=== PATIENT | female | born 1965 | race African-American/Black ===

== ENCOUNTER 2016-11-07 07:13 | Emergency (ER) | payer OTHER ==
[~2016-11-07] VITALS: Ht 157.5 cm; Wt 59.0 kg
--- NOTE | ~2016-11-07 | EKG ---
[address] [place] [address] ELECTROCARDIOGRAM REPORT Name: LEONARDO CLINTON [facility] [id number] Admission: Attend Phys: Discharge: Date of : 65 Report #: [id number] THIS REPORT FOR: //name// [facility] ED Test Date: 2016-11-07 Test Time: 07:22:30 Pat Name: LEONARDO CLINTON Department: Room: Gender: F [employer]: : 1965 Requested By: Kizzy Turner Order Number: [id number] MD: Jose Chua Measurements Intervals [place] Rate: 73 P: 67 RI: 189 QRS: 55 QRSD: 91 T: 23 QT: 400 QTc: 441 Interpretive Statements Sinus rhythm No significant abnormality No previous ECG available for comparison Electronically Signed On 11-07-2016 8:05:49 EKG MONITOR TECH by Jose Chua [email or web address] <ELECTRONICALLY SIGNED> By: Jose Chua MD, [facility] 11/07/16 0805 0722 0722 Jose Chua MD, FACC /EPI
[2016-11-07] MEDS ORDERED: NORVASC5 MG PO (07:35)
[2016-11-07] MEDS ORDERED: LISINOPRIL10 MG PO (07:35)
[2016-11-07] MEDS ORDERED: HYDROCHLOROTH12.5 M1 PO (07:35)
[2016-11-07] MEDS ORDERED: AUGMENTIN 875875 MG PO (07:36)
[2016-11-07 07:49] LABS: CALCIUM 8.8 mg/dL (8.5-10.1); CREATININE 1.2 mg/dL (0.6-1.3); POTASSIUM 3.4 mmol/L (3.5-5.1)
[2016-11-07 07:54] LABS: ABSOLUTE NEUTROPHILS 4.5 thou/uL (1.4-8.2); BASOPHILS 0.7 % (0.0-2.0); EOSINOPHILS 0.1 % (0.0-3.0); LYMPHOCYTES 11.9 % (24.0-44.0); MCH 21.5 pg (26.0-34.0); MCHC 31.5 % (28.0-37.0); MCV 68.3 fL (80.0-100.0); MONOCYTES 8.6 % (1.0-8.0); PLATELET COUNT 228 thou/uL (150-400); POLYS 78.7 % (36.0-66.0); RBC 5.56 mil/uL (4.20-5.00); RDW 14.9 % (10.5-14.5); WBC 5.8 thou/uL (4.0-11.0)
[2016-11-07 07:57] LABS: MANUAL DIFF NO
[2016-11-07 08:40] LABS: ANISOCYTOSIS 1+; HYPOCHROMASIA 1+; MICROCYTES 2+; PLATELET ESTIMATE NORMAL
[2016-11-07 08:58] LABS: URINE BILIRUBIN NEGATIVE (Negative); URINE BLOOD NEGATIVE (Negative); URINE COLOR YELLOW; URINE GLUCOSE-RANDOM* NEGATIVE (Negative); URINE KETONES TRACE (Negative); URINE LEUKOCYTES-REFLEX NEGATIVE (Negative); URINE PROTEIN (DIPSTICK) NEGATIVE (Negative); URINE SPECIFIC GRAVITY 1.015 (1.003-1.035); URINE UROBILINOGEN 0.2 E.U./dl (0.2-1.0)
[2016-11-07 09:52] VITALS: BP 139/86
== END 2016-11-07 09:53 | disposition home or self-care (01) ==
LOC: ER 07:13
PROVIDERS: Emergency Medicine
DX: E86.0 Dehydration (principal); I95.1 Orthostatic hypotension

== ENCOUNTER → 2017-02-27 | Outpatient (CLI) | payer OTHER ==
[~2017-02-27] MED LIST: AUGMENTIN 875875 MG PO; HYDROCHLOROTH12.5 M1 PO; LISINOPRIL10 MG PO; NORVASC5 MG PO
== END ==
LOC: RAD 05:13
DX: Z12.31 Encounter for screening mammogram for malignant neoplasm of breast (principal)

== ENCOUNTER → 2018-03-03 | Outpatient (CLI) | payer OTHER | LOC: RAD 01:11 | DX: Z12.31 Encounter for screening mammogram for malignant neoplasm of breast (principal) ==

== ENCOUNTER 2018-11-09 08:30 | Emergency (ER) | payer OTHER ==
[~2018-11-09] VITALS: Ht 157.5 cm; Wt 59.0 kg
[2018-11-09] MEDS ORDERED: ZOFRAN ODT4 MG PO (10:05)
[2018-11-09 10:22] VITALS: BP 151/71
== END 2018-11-09 10:24 | disposition home or self-care (01) ==
LOC: ER 08:30
DX: R11.2 Nausea with vomiting, unspecified (principal); R51 Headache; I10 Essential (primary) hypertension; V49.19XA Passenger injured in collision with other motor vehicles in nontraffic accident, initial encounter; Y93.89 Activity, other specified; Y92.89 Other specified places as the place of occurrence of the external cause; Y99.8 Other external cause status

== ENCOUNTER → 2019-04-09 | Outpatient (CLI) | payer OTHER ==
[~2019-04-09] MED LIST changes: +ZOFRAN ODT4 MG PO
== END ==
LOC: RAD 10:02
DX: Z12.31 Encounter for screening mammogram for malignant neoplasm of breast (principal)

== ENCOUNTER → 2020-04-26 | Outpatient (CLI) | payer OTHER | LOC: BC 13:03 | PROVIDERS: ATTEND Internal Medicine | DX: Z12.31 Encounter for screening mammogram for malignant neoplasm of breast (principal) ==

== ENCOUNTER → 2021-04-27 | Outpatient (CLI) | payer OTHER | LOC: BC 13:18 | PROVIDERS: ATTEND Internal Medicine | DX: Z12.31 Encounter for screening mammogram for malignant neoplasm of breast (principal) ==